=== PATIENT | male | born 1965 | race Caucasian/White ===

== ENCOUNTER 2022-06-08 15:07 | Inpatient (IN) | payer OTHER ==
[~2022-06-08] VITALS: Ht 157.5 cm; Wt 81.6 kg
[2022-06-08] MEDS ORDERED: HYDROCODONE/ACETAMINOPHEN 5/325MG TABLET PO ONE (16:00)
[2022-06-08 17:20] LABS: BASOPHILS % 0.4 % (0.0-2.0); EOSINOPHILS % 1.3 % (0.0-5.0); HEMATOCRIT. 40.5 % (42.0-52.0); HEMOGLOBIN. 13.6 g/dL (14.0-18.0); LYMPHOCYTES % 22.9 % (20.0-50.0); MEAN PLATELET VOLUME 7.9 fl (7.4-10.4); NEUTROPHILS % 69.4 % (40.0-76.0); PLATELET 428 x1000/uL (130-400); RED BLOOD CELL COUNT 4.88 mill/uL (4.7-6.1); RED CELL DISTRIBUTION WIDTH 13.2 % (11.6-14.6)
[2022-06-08 17:29] LABS: CHLORIDE 106 mEq/L (98-107)
[2022-06-08] MEDS: AMPICILLIN SOD/SULBACTAM NA 3 G in SODIUM CHLORIDE 0.9% 100 ML IV SCH (18:37)
[2022-06-08] MEDS ORDERED: LORAZEPAM 0.5MG TABLET PO PRN (21:30)
[2022-06-08] MEDS ORDERED: DOCUSATE SODIUM 100MG CAPSULE PO PRN (21:30)
[2022-06-08] MEDS ORDERED: ACETAMINOPHEN 325MG TABLET PO PRN ×3 (21:30→21:45)
[2022-06-08] MEDS ORDERED: ONDANSETRON HCL 4MG/2ML INJ IV PRN (21:30)
[2022-06-08] MEDS ORDERED: GUAIFENESIN 200MG/10ML SUGAR FREE UDC PO PRN ×2 (21:30→21:45)
[2022-06-08] MEDS ORDERED: IPRATROPIUM/ALBUTEROL 0.5-3(2.5)MG/3ML NEB HHN PRN (21:30)
[2022-06-08] MEDS ORDERED: CLONIDINE 0.1MG TABLET PO PRN (21:30)
[2022-06-08] MEDS ORDERED: MAGNESIUM/ALUMINUM HYDROXIDE/SIMETHICONE 30ML UDC PO PRN (21:45)
[2022-06-08] MEDS ORDERED: PIPERACILLIN/TAZ 3.375G PREMIX 50 ML IV NR (21:50)
[2022-06-08] MEDS ORDERED: VANCOMYCIN 1G PREMIX 200 ML IV NR (23:00)
[2022-06-09] VITALS: BP 122/72
[2022-06-09 00:15] LABS: CREATINE KINASE 67 IU/L (39-308)
[2022-06-09] MEDS: AMPICILLIN SOD/SULBACTAM NA 3 G in SODIUM CHLORIDE 0.9% 100 ML IV SCH (00:46)
[2022-06-09] MEDS: HYDROCODONE/ACETAMINOPHEN 5/325MG TABLET PO PRN ×3 (01:50→21:09)
[2022-06-09] MEDS ORDERED: INFLUENZA VACCINE 05/PF 0.5 ML SYRINGE IM ONE (03:15)
[2022-06-09] MEDS ORDERED: VANCOMYCIN 750MG PREMIX 150 ML IV SCH (05:00)
[2022-06-09] MEDS ORDERED: PIPERACILLIN/TAZOBACTAM 3.375 G in DEXTROSE 5% WATER 50 ML IV SCH (06:00)
[2022-06-09] MEDS: VANCOMYCIN 750MG PMX (XELLIA) 150 ML IV SCH ×3 (06:30→21:09)
[2022-06-09] MEDS: PIPERACILLIN/TAZOBACTAM 3.375 G in DEXTROSE 5% WATER 50 ML IV SCH ×3 (06:31→22:00)
[2022-06-09 08:00] VITALS: BP 124/70
[2022-06-09] MEDS: FAMOTIDINE 20MG TABLET PO SCH (08:33)
[2022-06-09 08:40] LABS: BASOPHILS % 0.5 % (0.0-2.0); EOSINOPHILS % 1.9 % (0.0-5.0); HEMATOCRIT. 38.9 % (42.0-52.0); HEMOGLOBIN. 13.3 g/dL (14.0-18.0); MEAN CORPUSCULAR HEMOGLOBIN 28.4 pg (28.0-32.0); MEAN CORPUSCULAR VOLUME 82.8 fL (80.0-94.0); MONOCYTES % 7.6 % (2.0-8.0); PLATELET 402 x1000/uL (130-400); RED CELL DISTRIBUTION WIDTH 13.1 % (11.6-14.6)
[2022-06-09 09:02] LABS: CHLORIDE 103 mEq/L (98-107)
[2022-06-09 09:05] LABS: CREATINE KINASE 65 IU/L (39-308)
[2022-06-09] MEDS ORDERED: IOHEXOL-350 100 ML BOTTLE ONE (11:20)
[2022-06-09 11:43] VITALS: BP 122/72
[2022-06-09] MEDS: CLINDAMYCIN 600MG PREMIX 50 ML IV SCH ×2 (12:55→17:59)
[2022-06-09 16:05] VITALS: BP 138/85
[2022-06-09 20:00] VITALS: BP 120/74
[2022-06-10] VITALS: BP 133/72
[2022-06-10] MEDS: CLINDAMYCIN 600MG PREMIX 50 ML IV SCH ×3 (02:25→17:18)
[2022-06-10 03:57] VITALS: BP 109/79
[2022-06-10] MEDS: PIPERACILLIN/TAZOBACTAM 3.375 G in DEXTROSE 5% WATER 50 ML IV SCH ×3 (05:30→21:32)
[2022-06-10] MEDS: VANCOMYCIN 750MG PMX (XELLIA) 150 ML IV SCH (05:30)
[2022-06-10 08:03] LABS: HEMATOCRIT 38.2 % (42.0-52.0); HEMOGLOBIN 13.3 g/dL (14.0-18.0); MEAN CORPUSCULAR HEMOGLOBIN 28.5 pg (28.0-32.0); MEAN CORPUSCULAR VOLUME 82.1 fL (80.0-94.0); PLATELET 399 x1000/uL (130-400); RED BLOOD CELL COUNT 4.65 mill/uL (4.7-6.1)
[2022-06-10 08:12] LABS: INR 1.1; PROTHROMBIN TIME 11.4 sec (9.6-11.0)
[2022-06-10 08:19] LABS: CHLORIDE 104 mEq/L (98-107)
[2022-06-10] MEDS: FAMOTIDINE 20MG TABLET PO SCH (09:45)
[2022-06-10 20:00] VITALS: BP 130/78
[2022-06-10] MEDS: HYDROCODONE/ACETAMINOPHEN 5/325MG TABLET PO PRN (20:22)
[2022-06-10] MEDS: VANCOMYCIN 750MG PREMIX 150 ML IV SCH (20:23)
[2022-06-11] VITALS (7 sets, daily range): BP systolic 124–144; BP diastolic 70–81
[2022-06-11] MEDS: HYDROCODONE/ACETAMINOPHEN 5/325MG TABLET PO PRN ×2 (04:24→22:17)
[2022-06-11] MEDS: PIPERACILLIN/TAZOBACTAM 3.375 G in DEXTROSE 5% WATER 50 ML IV SCH ×3 (05:50→23:58)
[2022-06-11 06:13] LABS: HEMATOCRIT 36.7 % (42.0-52.0); HEMOGLOBIN 13.1 g/dL (14.0-18.0); MEAN CORPUSCULAR HEMOGLOBIN 29.1 pg (28.0-32.0); MEAN CORPUSCULAR VOLUME 81.8 fL (80.0-94.0); PLATELET 390 x1000/uL (130-400); RED BLOOD CELL COUNT 4.49 mill/uL (4.7-6.1); RED CELL DISTRIBUTION WIDTH 13.3 % (11.6-14.6)
[2022-06-11 07:15] LABS: CHLORIDE 107 mEq/L (98-107)
[2022-06-11] MEDS: FAMOTIDINE 20MG TABLET PO SCH (08:36)
[2022-06-11] MEDS: VANCOMYCIN 750MG PREMIX 150 ML IV SCH ×2 (08:36→21:56)
[2022-06-12] VITALS: BP 136/75
[2022-06-12 04:00] VITALS: BP 136/76
[2022-06-12] MEDS: PIPERACILLIN/TAZOBACTAM 3.375 G in DEXTROSE 5% WATER 50 ML IV SCH ×3 (05:13→21:58)
[2022-06-12 08:00] VITALS: BP 119/76
[2022-06-12] MEDS: FAMOTIDINE 20MG TABLET PO SCH (08:00)
[2022-06-12 08:30] LABS: HEMOGLOBIN 13.5 g/dL (14.0-18.0); MEAN CORPUSCULAR HEMOGLOBIN 28.5 pg (28.0-32.0); MEAN CORPUSCULAR VOLUME 82.4 fL (80.0-94.0); PLATELET 397 x1000/uL (130-400); RED BLOOD CELL COUNT 4.74 mill/uL (4.7-6.1); RED CELL DISTRIBUTION WIDTH 13.3 % (11.6-14.6)
[2022-06-12 08:43] LABS: CHLORIDE 105 mEq/L (98-107)
[2022-06-12] MEDS: VANCOMYCIN 750MG PREMIX 150 ML IV SCH (09:15)
[2022-06-12] MEDS ORDERED: BUPIVACAINE HCL/PF 0.5% (5MG/ML) 10ML ONE (10:33)
[2022-06-12] MEDS ORDERED: LIDOCAINE HCL 1% 10 MG/ML 10ML VIAL ONE (10:33)
[2022-06-12] MEDS ORDERED: PROPOFOL 200MG/20ML VIAL IV ONE ×2 (14:04→14:46)
[2022-06-12] MEDS ORDERED: FENTANYL CITRATE/PF 50MCG/ML 2ML VIAL ONE (14:04)
[2022-06-12] MEDS ORDERED: MIDAZOLAM HCL 2 MG/2 ML VIAL ONE (14:04)
[2022-06-12] MEDS ORDERED: VANCOMYCIN 750MG PMX (XELLIA) 150 ML IV SCH (15:00)
[2022-06-12 16:00] VITALS: BP 129/66
[2022-06-12] MEDS: HYDROCODONE/ACETAMINOPHEN 5/325MG TABLET PO PRN ×2 (16:17→20:07)
[2022-06-12 20:00] VITALS: BP 123/72
[2022-06-12] MEDS: VANCOMYCIN 1GM PMX (XELLIA) 200 ML IV SCH (20:01)
[2022-06-13] VITALS: BP 122/71
[2022-06-13 04:00] VITALS: BP 125/72
[2022-06-13] MEDS: PIPERACILLIN/TAZOBACTAM 3.375 G in DEXTROSE 5% WATER 50 ML IV SCH ×3 (05:13→22:23)
[2022-06-13 08:00] VITALS: BP 127/82
[2022-06-13 12:00] VITALS: BP 129/75
[2022-06-13] MEDS: VANCOMYCIN 1GM PMX (XELLIA) 200 ML IV SCH ×2 (12:09→20:13)
[2022-06-13] MEDS: FAMOTIDINE 20MG TABLET PO SCH (12:09)
[2022-06-13 20:00] VITALS: BP 138/75
[2022-06-14] VITALS: BP 125/63
[2022-06-14 04:00] VITALS: BP 113/67
[2022-06-14] MEDS: PIPERACILLIN/TAZOBACTAM 3.375 G in DEXTROSE 5% WATER 50 ML IV SCH ×3 (05:42→21:51)
[2022-06-14 07:34] LABS: BASOPHILS % 0.7 % (0.0-2.0); EOSINOPHILS % 2.8 % (0.0-5.0); HEMATOCRIT. 38.3 % (42.0-52.0); HEMOGLOBIN. 13.2 g/dL (14.0-18.0); LYMPHOCYTES % 32.7 % (20.0-50.0); MEAN CORPUSCULAR HEMOGLOBIN 28.4 pg (28.0-32.0); MEAN CORPUSCULAR VOLUME 82.2 fL (80.0-94.0); MEAN PLATELET VOLUME 8.2 fl (7.4-10.4); MONOCYTES % 6.6 % (2.0-8.0); NEUTROPHILS % 57.2 % (40.0-76.0); PLATELET 401 x1000/uL (130-400); RED BLOOD CELL COUNT 4.66 mill/uL (4.7-6.1); RED CELL DISTRIBUTION WIDTH 13.4 % (11.6-14.6)
[2022-06-14 08:00] VITALS: BP 112/74
[2022-06-14 08:32] LABS: CHLORIDE 107 mEq/L (98-107)
[2022-06-14] MEDS: FAMOTIDINE 20MG TABLET PO SCH (10:34)
[2022-06-14] MEDS: VANCOMYCIN 1GM PMX (XELLIA) 200 ML IV SCH ×2 (10:34→20:19)
[2022-06-14 12:00] VITALS: BP 130/72
[2022-06-14 16:00] VITALS: BP 124/74
[2022-06-14 20:00] VITALS: BP 125/70
[2022-06-15] VITALS: BP 106/63
[2022-06-15 04:00] VITALS: BP 126/52
[2022-06-15] MEDS: PIPERACILLIN/TAZOBACTAM 3.375 G in DEXTROSE 5% WATER 50 ML IV SCH ×3 (05:18→22:08)
[2022-06-15 07:45] LABS: HEMOGLOBIN 13.2 g/dL (14.0-18.0); MEAN CORPUSCULAR HEMOGLOBIN 28.6 pg (28.0-32.0); MEAN CORPUSCULAR VOLUME 82.2 fL (80.0-94.0); PLATELET 386 x1000/uL (130-400); RED BLOOD CELL COUNT 4.62 mill/uL (4.7-6.1); RED CELL DISTRIBUTION WIDTH 13.2 % (11.6-14.6)
[2022-06-15 08:00] VITALS: BP 122/79
[2022-06-15] MEDS: VANCOMYCIN 1GM PMX (XELLIA) 200 ML IV SCH (08:59)
[2022-06-15] MEDS: FAMOTIDINE 20MG TABLET PO SCH (08:59)
[2022-06-15 09:45] LABS: CHLORIDE 108 mEq/L (98-107)
[2022-06-15 12:00] VITALS: BP 124/75
[2022-06-15 16:00] VITALS: BP 125/78
[2022-06-15 21:02] VITALS: BP 131/73
[2022-06-15] MEDS: VANCOMYCIN 750MG PMX (XELLIA) 150 ML IV SCH (23:00)
[2022-06-16 01:48] VITALS: BP 140/72
[2022-06-16 04:08] LABS: HEMATOCRIT 37.7 % (42.0-52.0); HEMOGLOBIN 13.4 g/dL (14.0-18.0); MEAN CORPUSCULAR HEMOGLOBIN 28.8 pg (28.0-32.0); PLATELET 396 x1000/uL (130-400); RED BLOOD CELL COUNT 4.66 mill/uL (4.7-6.1); RED CELL DISTRIBUTION WIDTH 13.5 % (11.6-14.6)
[2022-06-16 04:16] LABS: CHLORIDE 106 mEq/L (98-107)
[2022-06-16 04:23] LABS: VANCOMYCIN TROUGH 15.4 ug/mL (5.0-10.0)
[2022-06-16 04:51] VITALS: BP 119/69
[2022-06-16] MEDS: VANCOMYCIN 750MG PMX (XELLIA) 150 ML IV SCH ×3 (05:20→20:14)
[2022-06-16] MEDS: PIPERACILLIN/TAZOBACTAM 3.375 G in DEXTROSE 5% WATER 50 ML IV SCH ×3 (06:00→22:36)
[2022-06-16 08:00] VITALS: BP 125/79
[2022-06-16] MEDS: FAMOTIDINE 20MG TABLET PO SCH (08:18)
[2022-06-16 12:00] VITALS: BP 105/62
[2022-06-16 16:00] VITALS: BP 117/65
[2022-06-16 20:00] VITALS: BP 128/72
[2022-06-17] VITALS: BP 135/72
[2022-06-17 04:00] VITALS: BP 124/72
[2022-06-17 04:09] LABS: HEMATOCRIT 38.4 % (42.0-52.0); HEMOGLOBIN 13.1 g/dL (14.0-18.0); MEAN CORPUSCULAR HEMOGLOBIN 28.3 pg (28.0-32.0); MEAN CORPUSCULAR VOLUME 82.6 fL (80.0-94.0); PLATELET 409 x1000/uL (130-400); RED BLOOD CELL COUNT 4.65 mill/uL (4.7-6.1); RED CELL DISTRIBUTION WIDTH 13.5 % (11.6-14.6)
[2022-06-17 04:16] LABS: CHLORIDE 105 mEq/L (98-107)
[2022-06-17] MEDS: VANCOMYCIN 750MG PMX (XELLIA) 150 ML IV SCH (04:43)
[2022-06-17] MEDS: PIPERACILLIN/TAZOBACTAM 3.375 G in DEXTROSE 5% WATER 50 ML IV SCH ×3 (06:36→21:00)
[2022-06-17 08:00] VITALS: BP 122/74
[2022-06-17] MEDS: FAMOTIDINE 20MG TABLET PO SCH (08:59)
[2022-06-17 12:00] VITALS: BP 119/70
[2022-06-17 16:00] VITALS: BP 118/72
[2022-06-17 20:00] VITALS: BP 119/73
[2022-06-18] VITALS: BP 115/72
[2022-06-18 04:00] VITALS: BP 107/64
[2022-06-18] MEDS: PIPERACILLIN/TAZOBACTAM 3.375 G in DEXTROSE 5% WATER 50 ML IV SCH (05:33)
[2022-06-18 06:44] LABS: HEMATOCRIT 40.2 % (42.0-52.0); HEMOGLOBIN 13.7 g/dL (14.0-18.0); MEAN CORPUSCULAR HEMOGLOBIN 28.3 pg (28.0-32.0); PLATELET 394 x1000/uL (130-400); RED BLOOD CELL COUNT 4.84 mill/uL (4.7-6.1); RED CELL DISTRIBUTION WIDTH 13.4 % (11.6-14.6)
[2022-06-18 07:53] LABS: CHLORIDE 106 mEq/L (98-107)
[2022-06-18 08:00] VITALS: BP 122/90
[2022-06-18] MEDS: FAMOTIDINE 20MG TABLET PO SCH (08:40)
[2022-06-18 12:00] VITALS: BP 125/73
[2022-06-18 13:40] VITALS: BP 124/77
== END 2022-06-18 14:50 | disposition home health service (06) | DRG 854 ==
LOC: ER 15:07 → EDBEDREQTM 20:49 → EDBEDREQ 20:49 → SUPCPDRO 21:24 → ENRESERV 22:42 → 6EST 23:47
PROVIDERS: ADMIT Internal Medicine; ATTEND Internal Medicine
PROC: 0LBW0ZZ Excision of Left Foot Tendon, Open Approach (ICD-10-PCS; principal; 2022-06-12)
PROC: 0Y6U0Z0 Detachment at Left 3rd Toe, Complete, Open Approach (ICD-10-PCS; 2022-06-12)
DX: A48.0 Gas gangrene (principal); E44.1 Mild protein-calorie malnutrition; E87.20 Acidosis, unspecified; L03.116 Cellulitis of left lower limb; M86.9 Osteomyelitis, unspecified; Z20.822 Contact with and (suspected) exposure to COVID-19; L97.529 Non-pressure chronic ulcer of other part of left foot with unspecified severity; S91.312A Laceration without foreign body, left foot, initial encounter; D64.9 Anemia, unspecified; R73.03 Prediabetes; I10 Essential (primary) hypertension; Z68.32 Body mass index [BMI] 32.0-32.9, adult; W23.0XXA Caught, crushed, jammed, or pinched between moving objects, initial encounter; Y93.89 Activity, other specified; Y92.89 Other specified places as the place of occurrence of the external cause; Y99.8 Other external cause status
CPT/HCPCS: 36415; 73630; 73721; 75635; 80048; 80053; 80061; 80202; 82550; 83036; 83605; 84145; 85025; 85027; 87070; 87075; 87186; 87426; 88304; 88311; 90686; 93005; 93970; 97162; 97166; 99285; C1893; J0295; J2250; J2543; J2704; J3010; J3370; J3490; J7050; J7060; Q9967